=== PATIENT | male | born 1975 | race Caucasian/White ===

== ENCOUNTER → 2025-03-07 15:30 | Outpatient (REF) | payer BC, SELFPAY | LOC: RAD 15:30 | PROVIDERS: ATTENDING PHYSICIAN Orthopaedic Surgery; FAMILY PHYSICIAN Internal Medicine | DX: H05.53 Retained (old) foreign body following penetrating wound of bilateral orbits (principal); S46.011A Strain of muscle(s) and tendon(s) of the rotator cuff of right shoulder, initial encounter | CPT/HCPCS: 70030 ==